=== PATIENT | female | born 1955 | race Caucasian/White ===

== ENCOUNTER 2018-04-03 17:31 | Emergency (ER) | payer OTHER ==
[~2018-04-03] VITALS: Ht 165.1 cm; Wt 80.0 kg
[2018-04-03 19:28] LABS: GLUCOSE,POINT OF CARE 168 MG/DL (70-110)
[2018-04-03] MEDS ORDERED: CHOL5POW PO (19:51)
[2018-04-03] MEDS ORDERED: LINA5TAB PO (19:51)
[2018-04-03] MEDS ORDERED: VILA40TA PO (19:51)
[2018-04-03] MEDS ORDERED: ZIPR40CA2 PO (19:51)
[2018-04-03] MEDS ORDERED: DICY10I IM (19:51)
[2018-04-03] MEDS ORDERED: SIMV-261 PO (19:51)
[2018-04-03] MEDS ORDERED: HYDR50CA10 PO (19:51)
[2018-04-03] MEDS ORDERED: IBUP-2354 PO (19:51)
[2018-04-03] MEDS ORDERED: TRAZ-147 PO (19:51)
[2018-04-03] MEDS ORDERED: LORA10TA7 PO (19:51)
[2018-04-03] MEDS ORDERED: ADV100 IH (19:51)
[2018-04-03] MEDS ORDERED: OMEP20 PO (19:51)
[2018-04-03] MEDS ORDERED: GABA-531 PO (19:51)
[2018-04-03] MEDS ORDERED: METF500T6 PO (19:51)
[2018-04-03 19:53] LABS: EOSINOPHILS % (AUTO) 3.2 % (1.0-6.0); HEMATOCRIT 38.1 % (36-46); HEMOGLOBIN 13.6 g/dL (12.0-16.0); LYMPHOCYTES # (AUTO) 1.8 K/uL (1.0-4.8); LYMPHOCYTES % (AUTO) 26.3 % (22.0-44.0); MEAN CORPUSCULAR HEMOGLOBIN 29.4 pg (26.0-34.0); MEAN CORPUSCULAR HGB CONC 35.7 G/dL (31.0-37.0); MEAN CORPUSCULAR VOLUME 82 fL (80-100); MONOCYTES # (AUTO) 0.5 K/uL (0.1-1.0); MONOCYTES % (AUTO) 7.1 % (2.0-9.0); NEUTROPHILS # (AUTO) 4.4 K/uL (1.8-7.7); NEUTROPHILS % (AUTO) 62.4 % (40.0-70.0); PLATELET COUNT (AUTO) 205 K/uL (150-450); RED BLOOD CELL COUNT(AUTO) 4.64 MIL/uL (4.00-5.20); RED CELL DISTRIBUTION WIDTH 12.7 % (11.5-14.5)
[2018-04-03 20:17] LABS: ANION GAP 5 mmol/L (8-16); CARBON DIOXIDE 27 mmol/L (22-29); CHLORIDE 103 mmol/L (98-107); CREATININE 0.66 mg/dL (0.60-1.30); GLOMERULAR FILTR. RATE CALC > 60 mL/min (>60); GLUCOSE,RANDOM 169 mg/dL (70-110); POTASSIUM 3.9 mmol/L (3.5-5.1); SODIUM SERUM 135 mmol/L (136-145); UREA NITROGEN, BLOOD 12 mg/dL (7-18)
[2018-04-03 20:23] LABS: ALANINE AMINOTRANSFERASE 37 U/L (12-78); ALBUMIN 3.6 g/dL (3.4-5.0); ALKALINE PHOSPHATASE 94 U/L (46-116); ASPARTATE AMINOTRANSFERASE 19 U/L (15-37); BILIRUBIN,TOTAL 0.2 mg/dL (0.1-1.0); CREATINE KINASE, TOTAL 66 U/L (26-192); TOTAL PROTEIN, SERUM 6.9 g/dL (6.4-8.2)
[2018-04-03 20:28] LABS: B-TYPE NATRIURETIC PEPTIDE 76 pg/mL (0-100)
[2018-04-03 21:06] VITALS: BP 129/81
== END 2018-04-03 21:18 | disposition left against medical advice (07) ==
LOC: EMS 17:33
DX: R07.9 Chest pain, unspecified (principal); R00.2 Palpitations; E11.9 Type 2 diabetes mellitus without complications; I10 Essential (primary) hypertension
CPT/HCPCS: 93005; 99285